=== PATIENT | male | born 1945 | race Caucasian/White ===

== ENCOUNTER → 2017-03-24 | Outpatient (CLI) | payer MEDICARE ==
[~2017-03-24] MED LIST: AMLO5TAB2 PO; ASPI-496 PO; CALC0.25 PO; CARB1TAB22 PO; CHLO25TA PO; DOCU100C PO; FURO-92 PO; INSU100I28 SC; INSU100I7 SQ-INSULIN; POTA10TA5 PO; PROP40TA PO; SERT25TA3 PO; SIMV40TA3 PO
[2017-03-24 11:46] LABS: EPI LOT# 5695218
[2017-03-24 11:48] LABS: HEMATOCRIT 35.8 % (39.2-51.8); HEMOGLOBIN 11.9 g/dL (13.7-18.0); WHITE BLOOD COUNT 9.7 x10^3/uL (3.4-10)
[2017-03-24 11:49] LABS: HCT (PFA) 35.6 % (39.2-51.8); PLATELET (PFA) 208 x10^3/uL (130-400)
[2017-03-24 11:59] LABS: PATH.CAST-FLAG NOT PRESENT; SPERM-FLAG NOT PRESENT; SRC-FLAG NOT PRESENT; XTAL-FLAG NOT PRESENT; YLC-FLAG NOT PRESENT
[2017-03-24 12:01] LABS: ASPARTATE AMINO TRANSFERASE 17 U/L (15-37); BLOOD UREA NITROGEN 24 mg/dL (7-18)
[2017-03-24 12:37] LABS: EPI CARTRIDGE 134 SECONDS (72-193)
== END | disposition home or self-care (01) ==
LOC: STAR 09:56
PROVIDERS: ATTEND Neurological Surgery
DX: Z01.818 Encounter for other preprocedural examination (principal); G20 Parkinson's disease; I70.0 Atherosclerosis of aorta; I44.4 Left anterior fascicular block; R79.1 Abnormal coagulation profile
CPT/HCPCS: 36415; 71020; 80053; 81001; 85014; 85025; 85049; 85576; 85610; 85730; 93005

== ENCOUNTER 2017-04-02 09:20 | Day surgery (SDC) | payer MEDICARE ==
[~2017-04-02] VITALS: Ht 180.3 cm; Wt 83.1 kg
[~2017-04-02 09:20] MED LIST changes: +DOCU-180 PO; -DOCU100C PO
[2017-04-02] MEDS ORDERED: SODIUM CHLORIDE 0.9% 1,000 ML IV SCH (10:23)
[2017-04-02 10:29] VITALS: BP 144/75
[2017-04-02 10:49] LABS: BLOOD UREA NITROGEN 31 mg/dL (7-18)
[2017-04-02] MEDS ORDERED: DEXAMETHASONE 4 MG/ML, 1ML ONE (11:44)
[2017-04-02] MEDS ORDERED: PHENYLEPHRINE 10 MG/ML ONE (11:44)
[2017-04-02] MEDS ORDERED: PROPOFOL 10 MG/ML, 20ML ONE (11:44)
[2017-04-02] MEDS ORDERED: ONDANSETRON 2MG/ML, 2ML ONE (11:44)
[2017-04-02] MEDS ORDERED: GADOBUTROL 7.5 MMOL/7.5 ML PFS ONE (12:55)
== END 2017-04-02 14:35 | disposition home or self-care (01) ==
LOC: OUT 09:20 → EDSTATUS 11:00 → OUT 14:35
PROVIDERS: ATTEND Neurological Surgery
DX: G20 Parkinson's disease (principal); J34.89 Other specified disorders of nose and nasal sinuses; K21.9 Gastro-esophageal reflux disease without esophagitis; I50.9 Heart failure, unspecified; I13.0 Hypertensive heart and chronic kidney disease with heart failure and stage 1 through stage 4 chronic kidney disease, or unspecified chronic kidney disease; E11.22 Type 2 diabetes mellitus with diabetic chronic kidney disease; N18.9 Chronic kidney disease, unspecified; Z87.891 Personal history of nicotine dependence
CPT/HCPCS: 36415; 70551; 80048; A9585; J1100; J2370; J2405; J2704; J7030

== ENCOUNTER 2017-04-08 05:50 | Inpatient (IN) | payer MEDICARE ==
[~2017-04-08] VITALS: Ht 180.3 cm; Wt 81.3 kg
[2017-04-08 06:27] VITALS: BP 153/82
[2017-04-08] MEDS ORDERED: MINERAL OIL 10 ML VIAL MC ONE (06:33)
[2017-04-08] MEDS ORDERED: SODIUM BICARBONATE 1 MEQ/ML, 50ML VIAL ONE (06:33)
[2017-04-08] MEDS ORDERED: LIDOCAINE/MPF 2%-EPI 1:200K, 20 ML ONE (06:34)
[2017-04-08] MEDS ORDERED: EPINEPHRINE 1 MG/ML, 1ML ONE (06:34)
[2017-04-08] MEDS ORDERED: BUPIVACAINE/PF 0.5% ONE (06:34)
[2017-04-08] MEDS ORDERED: LIDOCAINE GEL 2%, 5ML ONE (06:34)
[2017-04-08] MEDS ORDERED: BACITRACIN OINT 500U/GM, 15 GM ONE (06:34)
[2017-04-08] MEDS ORDERED: THROMBIN 5,000 UNIT VIAL TP ONE (06:35)
[2017-04-08] MEDS ORDERED: BACITRACIN 50,000 UNIT ONE (06:35)
[2017-04-08] MEDS ORDERED: NITROPRUSSIDE 25 MG/ML, 2ML ONE (06:40)
[2017-04-08] MEDS ORDERED: LIDOCAINE 1%, 2ML ONE (06:45)
[2017-04-08] MEDS ORDERED: CEFUROXIME 1.5 GM ONE (07:08)
[2017-04-08] MEDS ORDERED: FENTANYL PF 100 MCG/2ML IV PRN (09:30)
[2017-04-08] MEDS ORDERED: ONDANSETRON 2MG/ML, 2ML IVPush PRN (09:30)
[2017-04-08] MEDS ORDERED: OXYcodone 5 MG/5 ML ORAL.SOL UDC PO PRN (09:30)
[2017-04-08] MEDS ORDERED: PROMETHAZINE 25 MG/ML, 1ML IV PRN (09:30)
[2017-04-08] MEDS ORDERED: LABETALOL 5MG/ML, 20ML IV PRN ×2 (09:30→12:30)
[2017-04-08] MEDS ORDERED: ACETAMINOPHEN 325 MG TABLET PO PRN ×3 (09:30→12:30)
[2017-04-08] MEDS ORDERED: HYDROmorphone 1 MG/ML, 1ML IV PRN (09:30)
[2017-04-08] MEDS ORDERED: hydrALAzine 20 MG/ML, 1ML IV PRN (09:30)
[2017-04-08] MEDS ORDERED: OXYcodone 5 MG/5 ML ORAL.SOL UDC ONE (10:36)
[2017-04-08] MEDS ORDERED: ACETAMINOPHEN 650 MG/20.3 ML UDC ONE (10:36)
[2017-04-08] MEDS ORDERED: FENTANYL PF 100 MCG/2ML ONE (10:36)
[2017-04-08] MEDS ORDERED: morphine SULFATE 10 MG/ML, 1ML IV PRN (12:30)
[2017-04-08] MEDS ORDERED: HYDROcodone/APAP 5/325 TABLET PO PRN (12:30)
[2017-04-08] MEDS ORDERED: ACETAMINOPHEN 650 MG SUPP PR PRN ×2 (12:30)
[2017-04-08] MEDS ORDERED: ENALAPRILAT 1.25 MG/ML, 2ML IV PRN (12:30)
[2017-04-08] MEDS ORDERED: OXYcodone/APAP 5/325MG TABLET PO PRN (12:30)
[2017-04-08] MEDS ORDERED: ONDANSETRON 2MG/ML, 2ML IV PRN (12:30)
[2017-04-08] MEDS: NS + 20MEQ KCL 1,000 ML IV SCH (13:28)
[2017-04-08] MEDS: CEFUROXIME 1.5 GM in SODIUM CHLORIDE 0.9% 50 ML IVPB SCH ×2 (13:28→20:49)
[2017-04-08] MEDS: hydrALAzine 20 MG/ML, 1ML IV PRN (15:00)
[2017-04-08] MEDS: CARBIDOPA/LEVODOPA 25 MG/100 MG TABLET PO SCH ×2 (16:25→20:49)
[2017-04-08] MEDS: INSULIN REGULAR 100 UNITS/ML, 3ML VIAL SQ-INSULIN SCH ×2 (16:35→20:49)
[2017-04-08] MEDS ORDERED: SCOPOLAMINE PATCH, 1.5MG PATCH.TD72 TD SCH (18:00)
[2017-04-08 20:35] LABS: HEP B SURF. AB < 3.1 mIU/mL (0.0-10.0)
[2017-04-08] MEDS: AMLODIPINE 5 MG TABLET PO SCH (20:49)
[2017-04-08] MEDS ORDERED: INSULIN DETEMIR 100 UNITS/ML, PEN SQ-INSULIN SCH (21:00)
[2017-04-08] MEDS ORDERED: SIMVASTATIN 40 MG TABLET PO SCH (21:00)
[2017-04-09] MEDS: hydrALAzine 20 MG/ML, 1ML IV PRN (00:06)
[2017-04-09] MEDS: ONDANSETRON 2MG/ML, 2ML IV PRN ×2 (01:22→05:39)
[2017-04-09 04:13] VITALS: BP 156/59
[2017-04-09 04:35] LABS: BLOOD UREA NITROGEN 12 mg/dL (7-18)
[2017-04-09 04:41] LABS: HEMATOCRIT 32.8 % (39.2-51.8); WHITE BLOOD COUNT 12.3 x10^3/uL (3.4-10)
[2017-04-09] MEDS: NS + 20MEQ KCL 1,000 ML IV SCH (05:40)
[2017-04-09] MEDS: INSULIN REGULAR 100 UNITS/ML, 3ML VIAL SQ-INSULIN SCH (07:00)
[2017-04-09] MEDS ORDERED: HYDR-3240 PO (08:03)
[2017-04-09] MEDS ORDERED: CEPH-368 PO (08:03)
[2017-04-09] MEDS: CARBIDOPA/LEVODOPA 25 MG/100 MG TABLET PO SCH (08:05)
[2017-04-09] MEDS: AMLODIPINE 5 MG TABLET PO SCH (08:06)
[2017-04-09] MEDS ORDERED: PROPRANOLOL 40 MG TABLET PO SCH (09:00)
[2017-04-09] MEDS ORDERED: SERTRALINE 50MG TABLET PO SCH (09:00)
[2017-04-09] MEDS ORDERED: FUROSEMIDE 40 MG TABLET PO SCH (09:00)
[2017-04-09] MEDS ORDERED: CHLORTHALIDONE 25 MG TABLET PO SCH (09:00)
[2017-04-09] MEDS ORDERED: POTASSIUM CHLORIDE 10 MEQ TABLET.ER PO SCH (09:00)
[2017-04-09] MEDS ORDERED: SENNA/DOCUSATE TABLET PO SCH (09:00)
== END 2017-04-09 10:49 | disposition home or self-care (01) | DRG 25 ==
LOC: ORIP 05:50 → EDSTATUS 10:00 → CCU 11:17 → DCLOUNGE 04-09 10:20
PROVIDERS: ADMIT Neurological Surgery; ATTEND Neurological Surgery
PROC: 4B00XVZ Measurement of Central Nervous Stimulator, External Approach (ICD-10-PCS; 2017-04-08)
PROC: 5A1D00Z (ICD-10-PCS; 2017-04-08)
PROC: 00H Central Nervous System and Cranial Nerves, Insertion (ICD-10-PCS; principal; 2017-04-08 07:30)
DX: G20 Parkinson's disease (principal); N18.6 End stage renal disease; I12.0 Hypertensive chronic kidney disease with stage 5 chronic kidney disease or end stage renal disease; E11.22 Type 2 diabetes mellitus with diabetic chronic kidney disease; D64.9 Anemia, unspecified; D63.1 Anemia in chronic kidney disease; K21.9 Gastro-esophageal reflux disease without esophagitis; Z99.2 Dependence on renal dialysis; Z91.048 Other nonmedicinal substance allergy status; Z87.891 Personal history of nicotine dependence
CPT/HCPCS: 36415; 70450; 80048; 82962; 85025; 86704; 86706; 86850; 86900; 87081; 87340; J0171; J0697; J1815; J2405; J3480; J3490; C1767; J0360

== ENCOUNTER 2017-04-12 07:00 | Inpatient (IN) | payer MEDICARE ==
[~2017-04-12] VITALS: Ht 180.3 cm; Wt 79.7 kg
[~2017-04-12 07:00] MED LIST changes: +CEPH-368 PO; +HYDR-3240 PO
[2017-04-12] MEDS ORDERED: SODIUM CHLORIDE 0.9% 1,000 ML IV ONE (07:35)
[2017-04-12] MEDS ORDERED: SODIUM CHLORIDE FLUSH 10ML SYR IVF ONE ×2 (08:00)
[2017-04-12 08:07] LABS: HEMATOCRIT 30.5 % (39.2-51.8); HEMOGLOBIN 10.2 g/dL (13.7-18.0); WHITE BLOOD COUNT 10.2 x10^3/uL (3.4-10)
[2017-04-12 08:19] LABS: ASPARTATE AMINO TRANSFERASE 20 U/L (15-37); BLOOD UREA NITROGEN 49 mg/dL (7-18)
[2017-04-12 08:24] LABS: IS PT STATUS REG ER OR PRE ER? YES
[2017-04-12 08:41] LABS: PATH.CAST-FLAG NOT PRESENT; SPERM-FLAG NOT PRESENT; SRC-FLAG NOT PRESENT; XTAL-FLAG NOT PRESENT; YLC-FLAG NOT PRESENT
[2017-04-12] MEDS ORDERED: ALEN70TA3 PO (10:21)
[2017-04-12] MEDS ORDERED: NAPH15DR OP (10:21)
[2017-04-12] MEDS ORDERED: INSU100C SQ-INSULIN (10:21)
[2017-04-12] MEDS ORDERED: D5%-0.45% NACL 1,000 ML IV ONE (11:00)
[2017-04-12] MEDS ORDERED: BISACODYL 10 MG SUPP PR PRN (12:30)
[2017-04-12] MEDS ORDERED: DOCUSATE 100 MG CAPSULE PO PRN (12:30)
[2017-04-12] MEDS ORDERED: POLYETHYLENE GLYCOL 17 GM PACKET PO PRN (12:30)
[2017-04-12] MEDS ORDERED: DEXTROSE 50%, 50ML SYRINGE IVPush PRN (13:00)
[2017-04-12] MEDS ORDERED: GLUCAGON 1 MG IM PRN (13:00)
[2017-04-12] MEDS ORDERED: DEXTROSE 4 GM TAB.CHEW PO PRN (13:00)
[2017-04-12 13:59] LABS: IS PT STATUS REG ER OR PRE ER? NO
[2017-04-12 14:30] LABS: DAU SCREEN DISCLAIMER
[2017-04-12] MEDS ORDERED: ARANESP 100 MCG/ML **ESRD SQ SCH (15:00)
[2017-04-12] MEDS ORDERED: NALOXONE 0.4 MG/ML, 1ML IVPush ONE (17:00)
[2017-04-12 17:51] VITALS: BP 163/68
[2017-04-12] MEDS: HEPARIN 5,000 UNITS/ML, 1ML SQ SCH (18:30)
[2017-04-12] MEDS: CARBIDOPA/LEVODOPA 25 MG/100 MG TABLET PO SCH ×2 (18:41→21:57)
[2017-04-12 18:49] LABS: IS PT STATUS REG ER OR PRE ER? NO
[2017-04-12 19:33] VITALS: BP 152/68
[2017-04-12] MEDS ORDERED: AMLODIPINE 5 MG TABLET PO SCH (21:00)
[2017-04-12] MEDS: INSULIN DETEMIR 100 UNITS/ML, PEN SQ-INSULIN SCH (21:52)
[2017-04-12] MEDS: SIMVASTATIN 40 MG TABLET PO SCH (21:56)
[2017-04-12] MEDS: INSULIN HUMULIN 70/30, 3ML PEN SQ-INSULIN SCH (21:57)
[2017-04-12] MEDS: SODIUM CHLORIDE FLUSH 10ML SYR IVF SCH (21:57)
[2017-04-13 02:22] VITALS: BP 133/69
[2017-04-13] MEDS: HEPARIN 5,000 UNITS/ML, 1ML SQ SCH ×3 (02:30→18:17)
[2017-04-13 05:00] LABS: ASPARTATE AMINO TRANSFERASE 14 U/L (15-37); BLOOD UREA NITROGEN 28 mg/dL (7-18)
[2017-04-13 05:01] LABS: HEMATOCRIT 28.3 % (39.2-51.8); HEMOGLOBIN 9.6 g/dL (13.7-18.0)
[2017-04-13 08:30] VITALS: BP 122/60
[2017-04-13] MEDS ORDERED: CHLORTHALIDONE 25 MG TABLET PO SCH (09:00)
[2017-04-13] MEDS: SERTRALINE 50MG TABLET PO SCH (09:20)
[2017-04-13] MEDS: FUROSEMIDE 40 MG TABLET PO SCH (09:21)
[2017-04-13] MEDS: CARBIDOPA/LEVODOPA 25 MG/100 MG TABLET PO SCH ×3 (09:23→20:27)
[2017-04-13] MEDS: SODIUM CHLORIDE FLUSH 10ML SYR IVF SCH ×2 (09:23→20:27)
[2017-04-13] MEDS: INSULIN HUMULIN 70/30, 3ML PEN SQ-INSULIN SCH ×2 (09:25→20:28)
[2017-04-13 13:35] VITALS: BP 132/63
[2017-04-13 19:35] VITALS: BP 118/57
[2017-04-13] MEDS: SIMVASTATIN 40 MG TABLET PO SCH (20:27)
[2017-04-13] MEDS: INSULIN DETEMIR 100 UNITS/ML, PEN SQ-INSULIN SCH (20:28)
[2017-04-14 01:10] VITALS: BP 135/63
[2017-04-14] MEDS: HEPARIN 5,000 UNITS/ML, 1ML SQ SCH ×3 (02:31→17:54)
[2017-04-14 04:36] LABS: HEMATOCRIT 31.9 % (39.2-51.8); HEMOGLOBIN 10.9 g/dL (13.7-18.0); WHITE BLOOD COUNT 6.2 x10^3/uL (3.4-10)
[2017-04-14 04:52] LABS: BLOOD UREA NITROGEN 37 mg/dL (7-18)
[2017-04-14 08:17] VITALS: BP_SYST 113; BP_SYST 126; BP_SYST 138; BP_DIAS 70; BP_DIAS 71
[2017-04-14] MEDS: SERTRALINE 50MG TABLET PO SCH (08:52)
[2017-04-14] MEDS: FUROSEMIDE 40 MG TABLET PO SCH (08:52)
[2017-04-14] MEDS: SODIUM CHLORIDE FLUSH 10ML SYR IVF SCH ×2 (08:52→21:00)
[2017-04-14] MEDS: CARBIDOPA/LEVODOPA 25 MG/100 MG TABLET PO SCH ×3 (08:52→20:44)
[2017-04-14] MEDS ORDERED: INSULIN HUMULIN 70/30, 3ML PEN SQ-INSULIN SCH (09:00)
[2017-04-14 14:00] VITALS: BP 137/81
[2017-04-14] MEDS: INSULIN ASPART 100 UNITS/ML, PEN SQ-INSULIN SCH ×2 (17:00→20:49)
[2017-04-14 19:41] VITALS: BP 128/69
[2017-04-14] MEDS: SIMVASTATIN 40 MG TABLET PO SCH (20:45)
[2017-04-14] MEDS: INSULIN DETEMIR 100 UNITS/ML, PEN SQ-INSULIN SCH (20:48)
[2017-04-15] MEDS: HEPARIN 5,000 UNITS/ML, 1ML SQ SCH ×2 (01:32→10:41)
[2017-04-15 03:40] VITALS: BP 122/64
[2017-04-15] MEDS: INSULIN ASPART 100 UNITS/ML, PEN SQ-INSULIN SCH ×2 (07:00→13:45)
[2017-04-15 07:31] VITALS: BP 121/79
[2017-04-15] MEDS: SODIUM CHLORIDE FLUSH 10ML SYR IVF SCH (10:42)
[2017-04-15] MEDS: FUROSEMIDE 40 MG TABLET PO SCH (10:42)
[2017-04-15] MEDS: SERTRALINE 50MG TABLET PO SCH (10:43)
[2017-04-15] MEDS: CARBIDOPA/LEVODOPA 25 MG/100 MG TABLET PO SCH (10:45)
[2017-04-15 13:43] VITALS: BP 142/67
[2017-04-15] MEDS ORDERED: DOCU-131 PO (13:58)
[2017-04-15] MEDS ORDERED: INSU100I28 SC (13:58)
[2017-04-15] MEDS ORDERED: POLY17PO5 PO (13:58)
== END 2017-04-15 17:05 | DRG 70 ==
LOC: ED 09:18 → EDIP 09:49 → 4WST 11:08
PROVIDERS: ADMIT Hospitalist; ATTEND Hospitalist
DX: G93.41 Metabolic encephalopathy (principal); N18.6 End stage renal disease; F05 Delirium due to known physiological condition; N25.81 Secondary hyperparathyroidism of renal origin; T40.605A Adverse effect of unspecified narcotics, initial encounter
CPT/HCPCS: 36415; 70450; 71010; 72125; 80048; 80053; 80307; 81001; 82140; 82962; 83735; 84100; 84145; 84443; 84484; 85025; 87040; 93005; 93306; 93970; 96360; 96361; J0882; J1644; J1815; J7030

== ENCOUNTER 2017-05-20 06:19 | Day surgery (SDC) | payer MEDICARE ==
[~2017-05-20] VITALS: Ht 180.3 cm; Wt 79.4 kg
[~2017-05-20 06:19] MED LIST changes: +ALEN70TA3 PO; +DOCU-131 PO; +INSU100C SQ-INSULIN; +NAPH15DR OP; +POLY17PO5 PO
[2017-05-20] MEDS ORDERED: THROMBIN 5,000 UNIT VIAL TP ONE (06:36)
[2017-05-20] MEDS ORDERED: BACITRACIN OINT 500U/GM, 15 GM ONE (06:36)
[2017-05-20] MEDS ORDERED: BUPIVACAINE/PF 0.5% ONE (06:36)
[2017-05-20] MEDS ORDERED: BACITRACIN 50,000 UNIT ONE (06:36)
[2017-05-20] MEDS ORDERED: EPINEPHRINE 1 MG/ML, 1ML ONE (06:36)
[2017-05-20] MEDS ORDERED: REMIFENTANIL 2 MG ONE (06:46)
[2017-05-20] MEDS ORDERED: LACTATED RINGERS 1,000 ML IV SCH (07:03)
[2017-05-20] MEDS ORDERED: SODIUM CHLORIDE 0.9% 1,000 ML IV SCH (07:50)
[2017-05-20] MEDS ORDERED: FENTANYL PF 100 MCG/2ML ONE ×3 (07:51→14:28)
[2017-05-20 07:56] VITALS: BP 144/80
[2017-05-20] MEDS ORDERED: HYDROmorphone 1 MG/ML, 1ML IV PRN (09:30)
[2017-05-20] MEDS ORDERED: OXYcodone 5 MG/5 ML ORAL.SOL UDC PO PRN (09:30)
[2017-05-20] MEDS ORDERED: FENTANYL PF 100 MCG/2ML IV PRN (09:30)
[2017-05-20] MEDS ORDERED: HYDROcodone/APAP 7.5-325MG/15ML UDC PO PRN (09:30)
[2017-05-20] MEDS ORDERED: ONDANSETRON 2MG/ML, 2ML IVPush PRN (09:30)
[2017-05-20] MEDS ORDERED: HYDROcodone/APAP 7.5-325MG/15ML UDC ONE (10:35)
== END 2017-05-20 12:20 ==
LOC: OUT 06:19
PROVIDERS: ATTEND Neurological Surgery
DX: G20 Parkinson's disease (principal); I10 Essential (primary) hypertension; K21.9 Gastro-esophageal reflux disease without esophagitis; E11.9 Type 2 diabetes mellitus without complications; Z98.890 Other specified postprocedural states; Z79.82 Long term (current) use of aspirin; Z87.891 Personal history of nicotine dependence
CPT/HCPCS: 61886; 70250; 82962; C1767; C1883; J0171; J0690; J1100; J2370; J2405; J2704; J3010; J3490; J7030; L8681